=== PATIENT | female | born 1930 | race African-American/Black ===

== ENCOUNTER 2017-07-22 08:15 | Emergency (ER) | payer OTHER, BC ==
[~2017-07-22] VITALS: Ht 170.2 cm; Wt 99.8 kg
[~2017-07-22 08:15] MED LIST: NORCO 5-325 TA1 EACH PO; [UNRECOGNIZED DRUG - REMARK]
[2017-07-22] MEDS ORDERED: ROBAXIN500 MG PO (10:15)
== END 2017-07-22 10:34 | disposition home or self-care (01) ==
LOC: ER 08:15
DX: M43.6 Torticollis (principal); I10 Essential (primary) hypertension; I49.9 Cardiac arrhythmia, unspecified; Z88.0 Allergy status to penicillin; Z88.6 Allergy status to analgesic agent; Z98.890 Other specified postprocedural states

== ENCOUNTER 2017-08-13 15:18 | Inpatient (IN) | payer OTHER, BC ==
[~2017-08-13] VITALS: Ht 170.2 cm; Wt 103.9 kg
--- NOTE | ~2017-08-13 | HC ---
[facility] [place] [address] CONSULTATION Name: EULA MATTHEWS Room #: 356-[facility] IN M.R.#: [id number] Admission: 08/13/17 Attend Phys: Alber Sandra MD Discharge: 08/17/17 Date of : 30 Report #: [id number] THIS REPORT FOR: //name// CC: Alber Sandra NO PCP DATE OF SERVICE: 08/16/2017 GASTROENTEROLOGY CONSULTATION REASON FOR CONSULTATION: Dysphagia. CONSULTING PHYSICIAN: Dr. Ganesh Araujo. HISTORY OF PRESENT ILLNESS: This is a pleasant 86-year-old female with past medical history of hypertension and anxiety who is admitted here to the hospital with dizziness and generalized weakness. GI consult was requested for dysphagia. She reports food, particularly bread sticking in middle third of the esophagus for the past few weeks. She has no difficulty with liquids. It is progressively getting worse. She does note acid reflux and is on omeprazole at home. She has never had an EGD. She underwent a swallow study that was normal. An ultrasound was done that shows gallstones. From a GI standpoint, she denies any abdominal pain, weight loss, change in bowel habits or blood in stools. REVIEW OF SYSTEMS: As noted in HPI, otherwise 10-point review of systems was obtained and negative. PAST MEDICAL AND SURGICAL HISTORY: 1. Frequent falls. 2. Dizziness. 3. Orthostatic ____. 4. Hypertension. 5. Hernia repair. 6. Foot surgery . 7. Bilateral knee surgery. 8. Left shoulder surgery. ALLERGIES AND MEDICATIONS: Reviewed and noted. SOCIAL HISTORY: Denies tobacco, alcohol or illegal drug use. FAMILY HISTORY: No family members with colorectal cancer or other GI malignancies. [facility] [address] [place] [address] CONSULTATION Name: EULA MATTHEWS Room #: 356-P [facility] IN M.R.#: [id number] Admission: 08/13/17 Attend Phys: Alber Sandra MD Discharge: 08/17/17 Date of : 30 Report #: [id number] PHYSICAL EXAMINATION: GENERAL: Alert and oriented to time, place and person, cooperative, appears in mild distress. VITAL SIGNS: Temperature 97.8 degrees Fahrenheit, heart rate 76, respirations 18, blood pressure 167/84, oxygen saturation 100% on room air. HEAD: Normocephalic, atraumatic. EYES: Pupils equal, round, reactive to light and accommodation. Extraocular movements intact. No pallor, no icterus. NECK: Supple. Midline trachea. Thyroid palpable. CARDIOVASCULAR: Regular rate and rhythm. No murmurs. RESPIRATORY: Chest clear to auscultation bilaterally. ABDOMEN: Soft, nontender, nondistended. Bowel sounds present. EXTREMITIES: No cyanosis, clubbing or edema. SKIN: Warm and dry. No rashes present. NEUROLOGIC: Cranial nerves 2-12 grossly intact. No focal deficits. LABORATORY DATA: White count 6.5, hemoglobin 10.3, platelets 153. Sodium 141, potassium 4.1, BUN 22, creatinine 1.0. Ultrasound of the abdomen shows cholelithiasis without findings of cholecystitis. Video swallow study was normal. CT of the head does not show any acute pathology. DIAGNOSTIC IMPRESSION AND PLAN: Dysphagia. She reports progressively worse dysphagia, mainly with solids, in particular bread. I recommend an esophagogastroduodenoscopy with possible dilation that will be done tomorrow. Differential includes esophageal stricture, webs, rings and esophageal neoplasm. Further recommendations pending esophagogastroduodenoscopy findings. Risks and benefits of the procedure were discussed and she is agreeable to proceed. The patient will be kept n.p.o. after midnight in preparation for esophagogastroduodenoscopy tomorrow. Thank you for allowing me to participate in the care of the patient. <ELECTRONICALLY SIGNED> By: Guido Pineda MD 08/21/17 0808 1125 0147 Shoaib Marie MD /nt
--- NOTE | ~2017-08-13 | EKG ---
[place] [address] [facility] [place] [address] ELECTROCARDIOGRAM REPORT Name: EULA MATTHEWS [facility] [id number] Admission: 08/13/17 Attend Phys: Discharge: Date of : 30 Report #: [id number] THIS REPORT FOR: //name// [facility] ED Test Date: 2017-08-13 Test Time: 16:24:21 Pat Name: EULA MATTHEWS Department: Room: Gender: F Scallop Raker: EVELIN : 1930 Requested By: Hermelindo Mcpherson Order Number: [id number] MD: Dakota Alexander Measurements Intervals [place] Rate: 80 P: 53 CO: 180 QRS: -18 QRSD: 151 T: 129 QT: 407 QTc: 470 Interpretive Statements Sinus rhythm Left bundle branch block No previous ECG available for comparison Electronically Signed On 08-13-2017 16:56:43 [employer] by Dakota Alexander [email or web address] <ELECTRONICALLY SIGNED> By: Dakota Alexander MD 08/13/17 1656 1624 1624 Dakota Alexander MD /BARB
--- NOTE | ~2017-08-13 | P ---
[facility] [place] [address] PROCEDURE REPORT Name: EULA MATTHEWS Room #: 356-P [facility] IN M.R.#: [id number] Admission: 08/13/17 Attend Phys: Alber Sandra MD Discharge: Date of : 30 Report #: [id number] THIS REPORT FOR: //name// CC: Alber NI PCP BRIEF HISTORY: The patient is an 86-year-old woman with development of solid food dysphagia in the past several months. PREOPERATIVE DIAGNOSIS: Recent onset of solid food dysphagia. POSTOPERATIVE DIAGNOSES: 1. Mild patchy erythematous antral gastritis. 2. Solid food dysphagia. MEDICATIONS: Deep sedation with propofol per anesthesia. SPECIMEN: Biopsies of gastritis. ESTIMATED BLOOD LOSS: 3 mL. PROCEDURE: EGD with biopsy and Ibarra dilation. FINDINGS: Prior to propofol sedation, the procedure of upper endoscopy and dilation were discussed with the patient as well as potential risks, benefits, and complications. She indicates she understands and desires to proceed. With the patient in left lateral decubitus position, the [employer] video endoscope was inserted in cervical esophagus under direct vision without difficulty. Examination of this organ through its entire length revealed normal esophageal mucosa down the squamocolumnar junction. The squamocolumnar junction was inspected. It was intact. No ulcers or erosions were seen. There was no evidence of Burks mucosa. A hiatus hernia was not seen. I did not see a stricture or ring. Scope was advanced in the stomach, which was examined on end view as well as retroflexed views. There was patchy erythema in the antrum of the stomach, but no ulcers were seen. Upon retroflexion, no mass lesions were seen in the cardia of stomach. the pylorus, duodenal bulb, and postbulbar sweep were all inspected and noted to be within normal limits. At that point, the scope was slowly withdrawn and careful circumferential views confirmed the above finding. Biopsies were obtained of the gastritis. Subsequently, the patient was empirically dilated with a 50-Setswana Ibarra dilator. There was no resistance to passage of the dilator. DISPOSITION: The patient with recent onset of solid food dysphagia. I did not see a stricture or ring. She certainly may have a subtle ring, which may not be obvious endoscopically. She was empirically dilated as described. We will [address] [address] PROCEDURE REPORT Name: EULA MATTHEWS Room #: 356[facility] IN .R.#: [id number] Admission: 08/13/17 Attend Phys: Alber Sandra MD Discharge: Date of : 30 Report #: [id number] follow up on biopsies and make further recommendations as needed. She should return for dilation on an as needed basis with regards to her symptoms. She should return to see me as needed for GI symptoms. No further GI intervention is planned at this time. <ELECTRONICALLY SIGNED> By: Mauro Negron MD 08/17/17 1631 0813 0946 Mauro Negron MD /nt
--- NOTE | ~2017-08-13 | HC ---
[facility] [place] [address] CONSULTATION Name: EULA MATTHEWS Room #: 356-P [facility] IN M.R.#: [id number] Admission: 08/13/17 Attend Phys: Alber Sandra MD Discharge: 08/17/17 Date of : 30 Report #: [id number] THIS REPORT FOR: //name// CC: Alber Sandra DATE OF SERVICE: 08/16/2017 REASON FOR CONSULTATION: Abdominal pain, dysphagia. HISTORY OF PRESENT ILLNESS: This is an 86-year-old female patient who was seen in the [facility] on 08/13/2017 with complaints of weakness, lightheadedness, myalgia, and lower chest/upper abdominal pain. She feels as if food is getting lodged in her chest. On further review of clinic records, the patient has seen my partner, Dr. Demond Gong, for cholelithiasis. Upon further questioning in the office, the patient had complaints of significant dysphagia and she was to be worked up for this. The patient was unaware of the workup to be performed at the time of consultation, mostly due to confusion and forgetfulness. I was consulted to see the patient for gallstones, which were identified on the ultrasound through the Emergency Room. She denies fever or chills at this time. She actually wishes to be dismissed to home as she is feeling much better. She underwent a video swallow study within the past couple of days after her admission, found to be normal. PAST MEDICAL HISTORY: Significant for hypertension, gastroesophageal reflux disease, spinal stenosis, depression, chronic pain, history of meningioma and chronic anemia. PAST SURGICAL HISTORY: Includes previous hernia repair, total abdominal hysterectomy, bilateral total knee arthroplasties, sinus surgery, aortoiliac bypass graft and cataract extraction. MEDICATIONS: Include [place], Robaxin, methocarbamol, losartan, amlodipine, Effexor and Lyrica. ALLERGIES: ZITHROMAX AND CELEBREX. FAMILY HISTORY: Reviewed and noncontributory to this hospitalization. SOCIAL HISTORY: The patient lives in independent living. She denies use of tobacco, alcohol or illicit drugs. REVIEW OF SYSTEMS: As per history of present illness. GENERAL: The patient denies fever or chills. Denies unintentional weight loss. HEENT: Denies changes in taste, vision, hearing, or smell. RESPIRATORY: Denies shortness of breath, COPD or asthma. CARDIOVASCULAR: Reports lower chest pain. Denies edema. Denies palpitations. [facility] [address] [place] [address] CONSULTATION Name: EULA MATTHEWS Room #: 356-P [facility]#: [id number] Admission: 08/13/17 Attend Phys: Alber Sandra MD Discharge: 08/17/17 Date of : 30 Report #: [id number] GASTROINTESTINAL: As per history of present illness, reports upper abdominal pain and dysphagia. GENITOURINARY: Denies dysuria, urgency or increased urinary frequency. MUSCULOSKELETAL: Reports myalgia, has had a history of arthritis. NEUROLOGIC: Denies headaches, numbness or tingling. PSYCHIATRIC: History of depression. Denies suicidal ideations. SKIN AND INTEGUMENTARY: Denies new skin lesions, rashes, or moles. ENDOCRINE: Denies polydipsia, polyuria, heat or cold intolerance. HEMATOLOGIC: Denies easy bleeding or bruising. Has a history of anemia. All other review of systems is negative. PHYSICAL EXAMINATION: VITAL SIGNS: Temperature 97.8, blood pressure 167/84, pulse 76, respirations 18. GENERAL: This is an 86-year-old female patient in no acute distress. She is slightly confused. HEENT: Atraumatic and normocephalic. NECK: Supple. Trachea is midline. CHEST: Clear bilaterally. CARDIOVASCULAR: Regular rate and rhythm. ABDOMEN: Soft, obese and mildly tender to palpation subcostally. She has no rebound or guarding. No palpable masses, no appreciable hernias. A large midline incisional ventral scar is present as is a transverse scar. GENITOURINARY: Normal external female genitalia. EXTREMITIES: No clubbing, cyanosis or edema. NEUROLOGIC: Cranial nerves 2-12 grossly intact. PSYCHIATRIC: Confused, but otherwise normal mood and affect. SKIN AND INTEGUMENTARY: No acute inflammatory changes, rashes or lesions are present. LABORATORY DATA: Most recent CBC from yesterday shows a white blood cell count 6.5, hemoglobin 10.3, hematocrit 30.8 and platelets 153. Electrolytes on the showed sodium of 141, potassium 4.1, chloride 107, CO2 of 26, BUN 22, creatinine 1.0 and glucose 97. BNP from 08/13/2017 was elevated at 982 (normal range less than 300). Urinalysis was negative on the . RADIOLOGIC STUDIES: A head CT from the showed diffuse atrophy with no acute abnormality. Video fluoroscopic swallow test showed normal swallowing function, but no aspiration or penetration. Abdominal ultrasound on 08/15/2017 showed cholelithiasis without evidence for cholecystitis. A small right pleural effusion was also seen and a septated left kidney cyst was present. IMPRESSION AND PLAN: This is an 86-year-old female patient with the above [facility] [address] [place] [address] CONSULTATION Name: EULA MATTHEWS Room #: 356-P [facility]#: [id number] Admission: 08/13/17 Attend Phys: Alber Sandra MD Discharge: 08/17/17 Date of : 30 Report #: [id number] listed comorbidities has gallstones and significant dysphagia. In view of Dr. Gong's clinic note, the patient is to undergo an EGD as well as an esophageal manometry; however, the patient has yet to undergo these studies. As she is now feeling well and wishes for dismissal, she has an acute surgical issue to keep her hospitalized and should undergo her scheduled outpatient studies, then return to Dr. Gong's clinic. We will follow along while hospitalized. We sincerely appreciate the opportunity to participate in the care of this patient and will leave further recommendations and orders in the electronic medical record as appropriate. Thank you very much for this general surgery consultation. <ELECTRONICALLY SIGNED> By: Everardo Bravo MD, FACS 08/18/17 0758 0110 0349 Everardo Bravo MD, FACS /nt
--- NOTE | ~2017-08-13 | S ---
[facility] [place] [address] SURGICAL PATH RPT PROCEDURE Name: EULA CH Room #: 356-P [facility] IN M.R.#: [id number] Admission: 08/13/17 Date of : 30 Discharge: 08/17/17 Report #: [id number] Path Case #: [id number] PATHOLOGY REPORT COLLECTION DATE: 08/17/2017 RECEIVED DATE: 08/17/2017 SUBMITTING PHYS: Dr. Mauro Negron OTHER PHYS: Dr. Alber Sandra SPECIMEN(S) RECEIVED: A.Gastritis * * * * * * * * * * * * FINAL DIAGNOSIS: Gastric mucosa, gastritis, endoscopic biopsy: - Moderately active gastropathy with focal mild active gastritis. - Negative for intestinal metaplasia or atrophy. - Negative for Helicobacter pylori. COMMENT: Well-controlled Helicobacter pylori immunohistochemical stain performed on block A1-negative. (IUV:mml; 08/18/2017) PATHOLOGIST: Sylvia Benson M.D. REPORT ELECTRONICALLY SIGNED BY: Sylvia Benson M.D. DATE/TIME: 08/18/2017 16:31 * * * * * * * * * * * * GROSS PATHOLOGY: Received in formalin labeled "Eula Ch, gastritis," are multiple (more than 5) segments of chapman soft tissue measuring 0.8 x 0.5 x 0.2 cm in aggregate dimensions. The specimen is submitted entirely in cassette A1. (SDY; 08/17/2017) CLINICAL HISTORY: Dysphagia, gastritis Rule out H. pylori INITIAL CPT CODE(S): A; 28592, 54513 Professional services performed by [facility] at [facility] [address], [place] [address] [facility] [address] [place] [address] SURGICAL PATH RPT PROCEDURE Name: EULA CH Room #: 356-P [facility] IN M.R.#: [id number] Admission: 08/13/17 Date of : 30 Discharge: 08/17/17 Report #: [id number] Path Case #: [id number] [facility] at [address] [place] [address], [place] [address]. [facility] [address] [address] PHONE: [phone] DIRECTOR: Thmo Reyes M.D. * * * END OF REPORT * * *
[~2017-08-13 15:18] MED LIST changes: +ROBAXIN500 MG PO
[2017-08-13 15:22] VITALS: BP 149/68
[2017-08-13 16:03] LABS: URINE BILIRUBIN NEGATIVE (Negative); URINE BLOOD NEGATIVE (Negative); URINE CLARITY CLEAR; URINE COLOR YELLOW; URINE GLUCOSE-RANDOM* NEGATIVE (Negative); URINE KETONES NEGATIVE (Negative); URINE LEUKOCYTES NEGATIVE (Negative); URINE NITRITE NEGATIVE (Negative); URINE PROTEIN (DIPSTICK) NEGATIVE (Negative); URINE UROBILINOGEN 0.2 E.U./dl (0.2-1.0)
[2017-08-13 16:09] LABS: ABSOLUTE NEUTROPHILS 5.7 thou/uL (1.4-8.2); EOSINOPHILS 2.5 % (0.0-3.0); HEMATOCRIT 32.7 % (37.0-47.0); LYMPHOCYTES 20.1 % (24.0-44.0); MCH 28.4 pg (26.0-34.0); MCHC 33.6 g/dL (28.0-37.0); MCV 84.4 fL (80.0-100.0); MONOCYTES 10.9 % (1.0-8.0); PLATELET COUNT 187 thou/uL (150-400); POLYS 65.5 % (36.0-66.0); RBC 3.87 mil/uL (4.20-5.00); RDW 14.3 % (10.5-14.5); WBC 8.6 thou/uL (4.0-11.0)
[2017-08-13 16:25] LABS: ANION GAP 9 mmol/L (7-16); BUN 30 mg/dL (7-18); CALCIUM 9.1 mg/dL (8.5-10.1); CHLORIDE 104 mmol/L (98-107); CO2 29 mmol/L (21-32); CREATININE 1.3 mg/dL (0.6-1.0); GLUCOSE 102 mg/dL (74-106); POTASSIUM 3.8 mmol/L (3.5-5.1); SODIUM 142 mmol/L (136-145)
[2017-08-13 16:34] LABS: ALBUMIN 3.3 g/dL (3.4-5.0); SGOT 20 U/L (15-37); SGPT 22 U/L (30-65); TOTAL BILIRUBIN 0.3 mg/dL (<0.1-1.0); TOTAL PROTEIN 7.2 g/dL (6.4-8.2); TROPONIN-I < 0.04 ng/mL (<0.06)
[2017-08-13 17:38] VITALS: BP 126/63
[2017-08-13 18:01] VITALS: BP 122/64
[2017-08-13] MEDS ORDERED: METHOCARBAMOL500 M2 PO (18:17)
[2017-08-13 19:02] VITALS: BP 192/102
[2017-08-13 23:15] VITALS: BP 203/94
[2017-08-13] MEDS ORDERED: PERCOCET 7.5-31 EACH PO (23:41)
[2017-08-13] MEDS ORDERED: AMLODIPINE BESY10 MG PO (23:43)
[2017-08-13] MEDS ORDERED: LOSARTAN POTAS100 MG PO (23:43)
[2017-08-13] MEDS ORDERED: EFFEXOR XR75 MG PO (23:44)
[2017-08-13] MEDS ORDERED: LYRICA 50 MG50 MG PO (23:45)
[2017-08-14] VITALS (7 sets, daily range): BP systolic 141–226; BP diastolic 56–104
[2017-08-14 06:16] LABS: CALCIUM 8.9 mg/dL (8.5-10.1); CREATININE 1.1 mg/dL (0.6-1.0); MAGNESIUM 1.5 mg/dL (1.8-2.4); POTASSIUM 3.7 mmol/L (3.5-5.1)
[2017-08-15 04:50] VITALS: BP 166/71
[2017-08-15 06:30] LABS: HEMATOCRIT 30.8 % (37.0-47.0); HEMOGLOBIN 10.3 gm/dL (12.0-15.0); MCH 28.7 pg (26.0-34.0); MCHC 33.4 g/dL (28.0-37.0); MCV 86.1 fL (80.0-100.0); RBC 3.58 mil/uL (4.20-5.00); RDW 14.1 % (10.5-14.5); WBC 6.5 thou/uL (4.0-11.0)
[2017-08-15 06:41] LABS: CALCIUM 9.3 mg/dL (8.5-10.1); POTASSIUM 4.1 mmol/L (3.5-5.1)
[2017-08-15 07:39] VITALS: BP 169/65
[2017-08-15 12:09] VITALS: BP 152/88
[2017-08-15 16:12] VITALS: BP 155/118
[2017-08-15 20:00] VITALS: BP 170/65
[2017-08-16 03:55] VITALS: BP 170/69
[2017-08-16 08:00] VITALS: BP 167/84
[2017-08-16 11:41] VITALS: BP 160/81
[2017-08-16 20:27] VITALS: BP 177/75
[2017-08-17 05:48] VITALS: BP 159/70
[2017-08-17 08:58] VITALS: BP 182/89
[2017-08-17] MEDS ORDERED: PROTONIX40 M1 PO (09:36)
[2017-08-17 12:29] VITALS: BP 152/60
[2017-08-17 13:15] VITALS: BP 152/60
[2017-08-17 15:17] VITALS: BP 152/60
[2017-08-17 16:33] VITALS: BP 152/60
== END 2017-08-17 16:38 | disposition home or self-care (01) | DRG 444 ==
LOC: ER 15:18 → 3W 17:11 → EROBS 17:11 → 3W 18:02 → ENTRNSPT 08-17 16:14 → 3W 08-17 16:38
PROVIDERS: Hospitalist; Nurse Practitioner; Physician Assistant
PROC: 0D758ZZ Dilation of Esophagus, Via Natural or Artificial Opening Endoscopic (ICD-10-PCS; principal; 2017-08-17)
PROC: 0DB68ZX Excision of Stomach, Via Natural or Artificial Opening Endoscopic, Diagnostic (ICD-10-PCS; principal; 2017-08-17)
DX: K80.20 Calculus of gallbladder without cholecystitis without obstruction (principal); N17.0 Acute kidney failure with tubular necrosis; K29.70 Gastritis, unspecified, without bleeding; I10 Essential (primary) hypertension; Z79.899 Other long term (current) drug therapy; Z88.1 Allergy status to other antibiotic agents; Z88.8 Allergy status to other drugs, medicaments and biological substances; I95.1 Orthostatic hypotension; K21.9 Gastro-esophageal reflux disease without esophagitis; F32.9 Major depressive disorder, single episode, unspecified; G89.29 Other chronic pain; Z96.653 Presence of artificial knee joint, bilateral; F41.9 Anxiety disorder, unspecified; Z98.42 Cataract extraction status, left eye; Z98.41 Cataract extraction status, right eye; I44.7 Left bundle-branch block, unspecified
CPT/HCPCS: 10779; 10879; 62110; 62900

== ENCOUNTER → 2017-09-29 | Outpatient (CLI) | payer OTHER, BC ==
[~2017-09-29] MED LIST changes: +AMLODIPINE BESY10 MG PO; +EFFEXOR XR75 MG PO; +LOSARTAN POTAS100 MG PO; +LYRICA 50 MG50 MG PO; +METHOCARBAMOL500 M2 PO; +PERCOCET 7.5-31 EACH PO; +PROTONIX40 M1 PO
== END ==
LOC: RAD 09:01
DX: M19.012 Primary osteoarthritis, left shoulder (principal); K44.9 Diaphragmatic hernia without obstruction or gangrene; R13.10 Dysphagia, unspecified; W19.XXXA Unspecified fall, initial encounter; Y93.89 Activity, other specified; Y92.89 Other specified places as the place of occurrence of the external cause; Y99.8 Other external cause status

== ENCOUNTER → 2017-09-30 | Outpatient (CLI) | payer OTHER, BC | LOC: NUC 09:03 | DX: R10.9 Unspecified abdominal pain (principal); R11.0 Nausea; R13.10 Dysphagia, unspecified; Z88.1 Allergy status to other antibiotic agents ==

== ENCOUNTER 2017-11-28 19:01 | Inpatient (IN) | payer OTHER, BC ==
[~2017-11-28] VITALS: Ht 170.2 cm; Wt 102.0 kg
--- NOTE | ~2017-11-28 | HC ---
[facility] [place] [address] CONSULTATION Name: EULA MATTHEWS Room #: 422-P ADM IN M.R.#: [id number] Admission: 11/28/17 Attend Phys: Nelson Fajardo DO Discharge: Date of : 30 Report #: [id number] THIS REPORT FOR: //name// CC: ALISON physician/PCP Nelson Fajardo DATE OF SERVICE: 11/29/2017 CHIEF COMPLAINT: Chronic recurrent low back pain and recent acute left foot pain. HISTORY OF PRESENT ILLNESS: This 87-year-old female states that she has chronic back pain and takes narcotics intermittently for chronic pain. She apparently is still reasonably active and lives independently with frequent assistance from family. She states she had a fall about one week ago, which resulted in both increased back discomfort and also some left foot pain. Those symptoms became more severe and she presented to the hospital for evaluation. Here, a CT scan of the lumbar spine revealed no evidence of fracture or any significant new injury. There is, however, rather marked chronic multilevel degenerative spondylosis with significant facet hypertrophy, arthritis and a mild spondylolisthesis of L4 on L5. There is also moderate canal stenosis at both L4-L5 and L5-S1 levels. X-rays of the left foot reveal a fracture of the fifth metatarsal near its base with mild displacement. At the time of my evaluation, she is alert and oriented. She is resting comfortably in bed and states she really has no discomfort when she is resting, but does have more pain in both areas when she is active. The left foot is well protected in a plaster splint, which was placed in the Emergency Department. There is tenderness over the fifth metatarsal base. The ankle seems to be stable and well aligned without much discomfort. Neurologic evaluation of left lower extremity is generally normal, although she does note some vague dysesthesia. She notes more significant intermittent dysesthesia and discomfort in the right lower extremity, although this is not bothering her today during my evaluation and the objective neurologic exam seems normal. She does have moderate generalized low back discomfort, which she notes is worse with standing, bending or activity. She notes, however, that she is able to ambulate with either a cane or a walker for protection. I think her primary complaint is a result of severe chronic multilevel degenerative lumbar spondylosis with associated back pain and spinal stenosis with mild radiculopathy. Her recent injury resulted in a left fifth metatarsal fracture. This is in acceptable alignment and I think it will probably heal in with nonsurgical management. I would suggest protection using a Cam walker fracture boot, which she can have on and off as comfort dictates. I feel she can bear full weight on the hind foot, but probably will need to be partial [address] [address] CONSULTATION Name: LAKISHA MATTHEWSJOTUSHAR Zhu Room #: 422-P [facility] IN M.R.#: [id number] Admission: 11/28/17 Attend Phys: Nelson Fajardo DO Discharge: Date of : 30 Report #: [id number] weightbearing on the forefoot. She probably should continue to use a walker for protection and gait assistance. I think she can be discharged whenever she has sufficient help at home with family assistance. I would like to see her back in my office for followup x-ray of the left foot in 2 weeks. <ELECTRONICALLY SIGNED> By: Gabe Gan MD 11/30/17 0732 1111 1940 Gabe Gan MD /nt
--- NOTE | ~2017-11-28 | EKG ---
[place] [address] [address] [place] [address] ELECTROCARDIOGRAM REPORT Name: LAKISHA MATTHEWSJORISamira Zhu Room #: 422-P [facility] IN M.R.#: [id number] Admission: 11/28/17 Attend Phys: Nelson Fajardo DO Discharge: Date of : 30 Report #: [id number] THIS REPORT FOR: //name// [facility] ED Test Date: 2017-11-28 Test Time: 19:50:37 Pat Name: EULA MATTHEWS Department: Room: Gender: F Board Winder: : 1930 Requested By: Ruth Jarquin Order Number: [id number] MD: Wicho Brandt Measurements Intervals [place] Rate: 75 P: 77 MT: 175 QRS: -20 QRSD: 153 T: 120 QT: 444 QTc: 496 Interpretive Statements Sinus rhythm Left bundle branch block Compared to ECG 08/13/2017 16:24:21 No significant changes Electronically Signed On 11-30-2017 7:56:51 CDT by Wicho Brandt [email or web address] <ELECTRONICALLY SIGNED> By: Wicho Brandt MD, [facility] 11/30/17 0756 1950 49 Wicho Brandt MD, FACC /EPI
[2017-11-28 19:19] VITALS: BP 162/84
[2017-11-28 20:17] LABS: BASOPHILS 0.1 % (0.0-2.0); EOSINOPHILS 2.7 % (0.0-3.0); HEMOGLOBIN 12.2 gm/dL (12.0-15.0); LYMPHOCYTES 28.4 % (24.0-44.0); MCH 28.2 pg (26.0-34.0); MCHC 32.9 g/dL (28.0-37.0); MCV 85.9 fL (80.0-100.0); MONOCYTES 10.6 % (1.0-8.0); PLATELET COUNT 175 thou/uL (150-400); POLYS 58.2 % (36.0-66.0); RDW 14.4 % (10.5-14.5); WBC 8.6 thou/uL (4.0-11.0)
[2017-11-28 20:27] LABS: ANION GAP 8 mmol/L (7-16); BUN 41 mg/dL (7-18); CALCIUM 9.8 mg/dL (8.5-10.1); CHLORIDE 107 mmol/L (98-107); CO2 29 mmol/L (21-32); CREATININE 1.6 mg/dL (0.6-1.0); GLUCOSE 74 mg/dL (74-106); POTASSIUM 3.9 mmol/L (3.5-5.1); SODIUM 144 mmol/L (136-145)
[2017-11-28 20:36] LABS: ALBUMIN 3.8 g/dL (3.4-5.0); SGOT 25 U/L (15-37); SGPT 30 U/L (30-65); TOTAL BILIRUBIN 0.2 mg/dL (<0.1-1.0); TOTAL PROTEIN 7.8 g/dL (6.4-8.2); TROPONIN-I < 0.04 ng/mL (<0.06)
[2017-11-28 21:22] LABS: URINE BILIRUBIN NEGATIVE (Negative); URINE BLOOD NEGATIVE (Negative); URINE CLARITY CLEAR; URINE COLOR YELLOW; URINE GLUCOSE-RANDOM* NEGATIVE (Negative); URINE KETONES NEGATIVE (Negative); URINE LEUKOCYTES NEGATIVE (Negative); URINE NITRITE NEGATIVE (Negative); URINE PROTEIN (DIPSTICK) NEGATIVE (Negative); URINE SPECIFIC GRAVITY 1.025 (1.005-1.035); URINE UROBILINOGEN 0.2 E.U./dl (0.2-1.0)
[2017-11-28 22:29] VITALS: BP 188/80
[2017-11-28 23:34] VITALS: BP 172/80
[2017-11-29 04:42] VITALS: BP 162/66
[2017-11-29 07:11] LABS: CREATININE 1.3 mg/dL (0.6-1.0); MAGNESIUM 2.3 mg/dL (1.8-2.4); POTASSIUM 4.1 mmol/L (3.5-5.1)
[2017-11-29 07:14] VITALS: BP 154/66
[2017-11-29 07:26] LABS: CALCIUM 10.4 mg/dL (8.5-10.1)
[2017-11-29 18:07] VITALS: BP 197/89
[2017-11-29 20:30] VITALS: BP 153/82
[2017-11-30 03:36] VITALS: BP 183/81
[2017-11-30 06:11] LABS: ABSOLUTE NEUTROPHILS 9.3 thou/uL (1.4-8.2); BASOPHILS 0.1 % (0.0-2.0); EOSINOPHILS 0.1 % (0.0-3.0); HEMATOCRIT 32.8 % (37.0-47.0); HEMOGLOBIN 10.8 gm/dL (12.0-15.0); LYMPHOCYTES 13.8 % (24.0-44.0); MCH 28.2 pg (26.0-34.0); MCHC 32.8 g/dL (28.0-37.0); MONOCYTES 8.1 % (1.0-8.0); PLATELET COUNT 173 thou/uL (150-400); POLYS 77.9 % (36.0-66.0); RBC 3.82 mil/uL (4.20-5.00); RDW 14.5 % (10.5-14.5); WBC 11.9 thou/uL (4.0-11.0)
[2017-11-30 06:30] LABS: CALCIUM 9.5 mg/dL (8.5-10.1); CREATININE 1.1 mg/dL (0.6-1.0); POTASSIUM 3.9 mmol/L (3.5-5.1)
[2017-11-30 07:48] VITALS: BP 165/89
[2017-11-30 15:35] VITALS: BP 174/76
[2017-11-30 20:05] VITALS: BP 159/114
[2017-12-01 07:15] LABS: HEMATOCRIT 32.4 % (37.0-47.0); HEMOGLOBIN 10.7 gm/dL (12.0-15.0); MCH 28.6 pg (26.0-34.0); MCV 86.6 fL (80.0-100.0); PLATELET COUNT 146 thou/uL (150-400); RBC 3.74 mil/uL (4.20-5.00); RDW 14.5 % (10.5-14.5); WBC 8.9 thou/uL (4.0-11.0)
[2017-12-01 07:25] LABS: CALCIUM 9.1 mg/dL (8.5-10.1); POTASSIUM 4.1 mmol/L (3.5-5.1)
[2017-12-01 07:35] VITALS: BP 192/84
[2017-12-01] MEDS ORDERED: LYRICA 50 MG50 MG PO (08:27)
[2017-12-01] MEDS ORDERED: NORCO 5-325 TA1 EACH PO (08:28)
[2017-12-01 09:21] LABS: ABSOLUTE NEUTROPHILS 5.2 thou/uL (1.4-8.2)
== END 2017-12-01 16:10 | DRG 551 ==
LOC: ER 19:01 → EROBS 21:44 → 4E 21:44 → SICU 11-30 18:19
PROVIDERS: Family Medicine; Nurse Practitioner Acute Care; Nurse Practitioner Family
PROC: 2W3TX1Z Immobilization of Left Foot using Splint (ICD-10-PCS; principal; 2017-11-28)
DX: M48.061 Spinal stenosis, lumbar region without neurogenic claudication (principal); N17.0 Acute kidney failure with tubular necrosis; S92.352A Displaced fracture of fifth metatarsal bone, left foot, initial encounter for closed fracture; I10 Essential (primary) hypertension; R29.6 Repeated falls; F32.9 Major depressive disorder, single episode, unspecified; F41.9 Anxiety disorder, unspecified; R07.9 Chest pain, unspecified; W18.39XA Other fall on same level, initial encounter; Y93.89 Activity, other specified; Y92.89 Other specified places as the place of occurrence of the external cause; Y99.8 Other external cause status; Z98.42 Cataract extraction status, left eye; Z98.41 Cataract extraction status, right eye; Z79.899 Other long term (current) drug therapy; Z88.1 Allergy status to other antibiotic agents; Z88.8 Allergy status to other drugs, medicaments and biological substances
CPT/HCPCS: 10183; 15002